=== PATIENT | male | born 1965 | race American Indian/Alaskan Native ===

== ENCOUNTER 2019-07-16 13:36 | Emergency (ER) | payer OTHER ==
[~2019-07-16] VITALS: Ht 182.9 cm; Wt 78.4 kg
[2019-07-16 13:46] VITALS: BP 110/72
[2019-07-16] MEDS ORDERED: CefTRIAXone 250MG IM Kit w/LIDOcaine IM ONE (15:00)
[2019-07-16] MEDS ORDERED: azithromycin 250mg tablet PO ONE (15:00)
--- NOTE | 2019-07-16 15:14 | NUR ---
PT GIVEN GOWN TO CHANGE INTO, PT CHANGED AND ABMULATORY TO BATHROOM WITH STEADY GAIT TO PROVIDE URINE SAMPLE PER ORDERS FOR CHLAM/GC, US HAS BEEN PAGED BY TAWANDA KIM, WILL MEDICATE PT PER ORDER UPON PT RETURN TO ROOM.
--- NOTE | 2019-07-16 15:24 | NUR ---
US AT BEDSIDE WILL MEDICATE PT WHEN US IS FINISHED.
== END 2019-07-16 16:32 | disposition home or self-care (01) ==
LOC: ER 13:37
DX: R10.32 Left lower quadrant pain (principal); F12.90 Cannabis use, unspecified, uncomplicated
CPT/HCPCS: 36415; 76870; 87491; 87591; 96372; 99284; J0696

== ENCOUNTER 2021-03-29 23:54 | Emergency (ER) | payer OTHER ==
[~2021-03-29] VITALS: Ht 185.4 cm; Wt 66.3 kg
[2021-03-30 00:05] VITALS: BP 100/68
--- NOTE | 2021-03-30 00:08 | NUR ---
Patient states "I don't want a room I just need a bandaid or something and for someone to look at my mouth, I don't need a doctor, just a pretty nurse". Patient provided with bandaids and shown the bathroom, he then stated "If I have to do this myself I'll just leave then". Encouraged that with time we can then help him get cleaned up but patient seemed frustrated and impatient and walked out.
--- NOTE | 2021-03-30 00:45 | NUR ---
Patient noted to leave- no longer present in waiting room when his name was called.
== END 2021-03-30 01:29 | disposition left against medical advice (07) ==
LOC: ER 23:55
DX: Z53.21 Procedure and treatment not carried out due to patient leaving prior to being seen by health care provider (principal)

== ENCOUNTER 2025-01-16 13:01 | Emergency (ER) | payer MEDICAID ==
[~2025-01-16] VITALS: Ht 185.4 cm; Wt 95.0 kg
[2025-01-16 13:41] VITALS: TEMP 98.3
--- NOTE | 2025-01-16 15:00 | Physician Documentation ---
History of Present Illness ~ Chief Complaint: Rib pain Stated Complaint: RIB PAIN SOB Time Seen by MD: 13:16 HPI Patient is seen today with complaints of right-sided rib pain/side pain/abdominal muscle wall pain after swimming a couple of days ago. Patient states while he was swimming he felt a automatic twinge of pain in his side and now has decreased mobility and tenderness to palpation in the musculature of his right abdominal wall/intercostals. Patient denies any blunt force trauma. He denies any shortness of breath but states it does hurt to take a deep breath. He has no other concern or complaint at this time. He denies any chest pain or abdominal pain or nausea, vomiting, diarrhea. Tetanus within 5 Years?: Yes Allergies: Coded Allergies: No Known Allergies (Unverified , 07/16/19) Active Prescriptions See Medication Reconciliation Form. Past Medical History Past Medical History: No Pertinent History Past Surgical History: noncontributory Drug Use: marijuana Lives In: Home Occupation: employed Review of Systems Constitutional: Denies: chills, fever, weakness Eyes: Denies: pain, blurred vision ENT: Denies: ear pain, nose pain, throat pain, mouth pain Respiratory: Denies: cough, shortness of breath Cardiovascular: Denies: chest pain, palpitations Gastrointestinal: Denies: abdominal pain, nausea, vomiting Genitourinary: Denies: burning, dysuria Male Genitalia: Denies: penile discharge, testicular pain Neurological: Denies: headache, dizziness Musculoskeletal: Denies: pain, swelling Integumentary: Denies: rash, lesions Allergic/Immunologic: Denies: hives, itching Hematologic/Lymphatic: Denies: no symptoms reported Psychiatric: Denies: depression, anxiety Physical Exam Vital Signs: Temperature: 98.3, Source: Oral, Heart Rate: 70, Respiratory Rate: 16, BP: 115/77, Pulse Oximetry: 95, Weight: 95.000 Oxygen Flow Rate: 0 Physical Exam General: Awake and Alert, no acute distress. HEENT: Conjunctiva pink, Sclera clear, Mucus Membranes moist. Neck: Supple without masses and tenderness. Resp: Unlabored. Lungs clear to auscultation bilaterally. Heart: Regular Rate and rhythm, normal S1 and S2 without murmur, rub or gallop. Chest: Patient on exam does have tenderness to palpation of the superficial intercostal muscles on the right ribcage as well as right abdominal wall muscles. I do not appreciate any ecchymosis. Abdomen: Soft and non tender no organomegaly Extremities: No cyanosis,clubbing or edema. Skin: Warm and Dry. Progress Results/Orders Results/Orders Vital Signs 01/16/25 01/16/25 13:09 13:41 Temp 98.3 98.3 Pulse 72 70 Resp 16 16 B/P (MAP) 121/81 115/77 (90) Pulse Ox 98 95 O2 Flow Rate 0 0 Medical Decision Making Findings Patient is seen today with complaints of right-sided rib pain/side pain/abdominal muscle wall pain after swimming a couple of days ago. Patient states while he was swimming he felt a automatic twinge of pain in his side and now has decreased mobility and tenderness to palpation in the musculature of his right abdominal wall/intercostals. Patient denies any blunt force trauma. He denies any shortness of breath but states it does hurt to take a deep breath. He has no other concern or complaint at this time. He denies any chest pain or abdominal pain or nausea, vomiting, diarrhea. Patient given Toradol 15 mg IM in the ED today. Patient tolerated well. Patient will continue to monitor closely for changes in for shortness of breath. Patient will return to clinic or follow up with primary care in 3-5 days if no better as needed sooner. Patient will continue deep breath exercises as tolerated. Return to ED with any worsening, concerning or changing symptoms. Departure Disposition: HOME / SELF CARE / HOMELESS Impression: Primary Impression: Rib pain Condition: Improved Discharge Instructions: Rib Contusion Additional Instructions: Patient given Toradol 15 mg IM in the ED today. Patient tolerated well. Patient will continue to monitor closely for changes in for shortness of breath. Patient will return to clinic or follow up with primary care in 3-5 days if no better as needed sooner. Patient will continue deep breath exercises as tolerated. Return to ED with any worsening, concerning or changing symptoms. Referrals: NO PRIMARY CARE PROVIDER (PCP) Signature Scribe Signature: No scribe Attestation: No scribe JONATHAN SAMPSON PAC Jan 16, 2025 15:00
[2025-01-16] MEDS ORDERED: ketorolac trometh 30MG/ML vial 30 MG/ML VIAL IM STA (15:04)
[2025-01-16 16:00] VITALS: BP 114/89; PULSE 57; O2SAT 98
[2025-01-16 16:06] VITALS: RESP 16
[2025-01-16] MEDS: ketorolac trometh 15mg/ml vial 15 MG/ML ML IM STA (16:06)
== END 2025-01-16 16:16 | disposition home or self-care (01) ==
LOC: ER 13:03
DX: R07.81 Pleurodynia (principal); F12.90 Cannabis use, unspecified, uncomplicated
CPT/HCPCS: 96372; 99283; J1885